=== PATIENT | female | born 1950 | race American Indian/Alaskan Native ===

== ENCOUNTER 2020-10-13 14:17 | Emergency (ER) | payer MEDICARE ==
--- NOTE | 2020-10-13 14:25 | Event Note ---
ED Screening Note Date of service: 10/13/20 Time: 14:24 ED Screening Note: Patient presents from urgent care for right lower quadrant pain times yesterday Denies nausea/vomiting/diarrhea Denies history of abdominal surgeries History of hypertension This initial assessment/diagnostic orders/clinical plan/treatment(s) is/are subject to change based on patients health status, clinical progression and re- assessment by fellow clinical providers in the ED. Further treatment and workup at subsequent clinical providers discretion. Patient/guardian urged not to elope from the ED as their condition may be serious if not clinically assessed and managed. Initial orders include: MAIN Labs CT
[2020-10-13 14:29] VITALS: BP 139/79
[2020-10-13 15:17] LABS: Bacteria,Urine 3+ /HPF (Negative); Bilirubin,Urine NEG (Negative); Blood,Urine SM (Negative); Color,Urine Yellow (Yellow); Mucus,Urine 2+ /HPF; Protein,Urine <15 mg/dL mg/dL (Negative); Urobilinogen,Urine < 2.0 mg/dL (<2.0)
[2020-10-13 16:02] LABS: Alanine Aminotransferase 13 units/L (7-56); Blood Urea Nitrogen 14 mg/dL (7-17); Calcium 9.6 mg/dL (8.4-10.2); Hemolysis Index 33
[2020-10-13 16:04] LABS: Basophils % (Auto) 0.5 % (0.0-1.8); Eosinophils % (Auto) 0.5 % (0.0-4.3); Hematocrit 40.2 % (30.3-42.9); Hemoglobin 13.2 gm/dl (10.1-14.3); Lymphocytes # (Auto) 2.1 K/mm3 (1.2-5.4); Lymphocytes % (Auto) 37.5 % (13.4-35.0); Mean Corpuscular HGB Conc 33 % (30-34); Mean Corpuscular Volume 86 fl (79-97); Monocytes # (Auto) 0.3 K/mm3 (0.0-0.8); Monocytes % (Auto) 5.3 % (0.0-7.3); Platelet Count 231 K/mm3 (140-440); Red Blood Count 4.65 M/mm3 (3.65-5.03); Red Cell Distribution Width 15.3 % (13.2-15.2)
[2020-10-13 16:08] LABS: BUN/Creatinine Ratio 20
[2020-10-13] MEDS ORDERED: fentaNYL 100 MCG/2 ML INJ ONE (22:37)
[2020-10-13] MEDS ORDERED: ONDANSETRON 4 MG/2 ML INJ ONE (22:37)
[2020-10-13] MEDS ORDERED: ONDANSETRON 4 MG/2 ML INJ IV ONE (22:38)
[2020-10-13] MEDS ORDERED: fentaNYL 100 MCG/2 ML INJ IV ONE (22:38)
--- NOTE | 2020-10-13 22:43 | Emergency Department Report ---
HPI - General Chief Complaint: Abdominal Pain Time Seen by Provider: 10/13/20 14:23 - HPI HPI: Room 24 The patient is a 70-year-old female present with a chief complaint of abdominal pain. Patient states she developed right lower quadrant pain yesterday is been constant in nature. Patient denies nausea/vomiting, dysuria or fever. Patient states she still has an appetite. Patient states the pain occasionally radiates to her right flank and down her right leg. Patient currently gives her pain a score of 8/10. Patient went to an urgent care facility initially but was referred to the ED so that she could get a CAT scan of her abdomen and pelvis ED Past Medical Hx - Past Medical History Previous Medical History?: Yes Hx Hypertension: Yes Hx CVA: Yes - Surgical History Past Surgical History?: No - Family History Family history: no significant - Social History Smoking Status: Former Smoker (None x4 years) Substance Use Type: None (Denies illicit drug use) - Medications Home Medications: Home Medications Medication Instructions Recorded Confirmed Last Taken Type Ibuprofen [Motrin 800 MG tab] 800 mg PO Q8HR PRN #20 tablet 10/13/20 Unknown Rx levoFLOXacin [Levaquin TAB] 500 mg PO QDAY #7 tablet 10/13/20 Unknown Rx traMADoL [Ultram] 50 mg PO Q6HR PRN #10 tablet 10/13/20 Unknown Rx ED Review of Systems ROS: Stated complaint: CT SCAN NEEDED Other details as noted in HPI Constitutional: denies: fever Eyes: denies: eye pain ENT: denies: throat pain Respiratory: no symptoms reported Cardiovascular: denies: chest pain Endocrine: no symptoms reported Gastrointestinal: abdominal pain. denies: nausea, vomiting Genitourinary: denies: dysuria Musculoskeletal: back pain Neurological: denies: headache Physical Exam - Physical Exam Vital Signs: Vital Signs 10/13/20 14:25 Temperature 97.8 F Pulse Rate 73 Respiratory 20 Rate Blood Pressure 139/79 O2 Sat by Pulse 100 Oximetry Physical Exam: GENERAL: The patient is well-developed well-nourished female lying on stretcher not appearing to be in acute distress. [] HEENT: Normocephalic. Atraumatic. Extraocular motions are intact. Patient has moist mucous membranes. NECK: Supple. Trachea midline CHEST/LUNGS: Clear to auscultation. There is no respiratory distress noted. HEART/CARDIOVASCULAR: Regular. There is no tachycardia. There is no gallop rub or murmur. ABDOMEN: Abdomen is soft, with discomfort to palpation in the right lower quadrant, suprapubic and left lower quadrant. Pain greatest in the right lower quadrant. There is no rebound or guarding. The remainder of the abdomen is nontender. Patient has normal bowel sounds. There is no abdominal distention. SKIN: There is no rash. There is no edema. There is no diaphoresis. NEURO: The patient is awake, alert, and oriented. The patient is cooperative. The patient has normal speech MUSCULOSKELETAL: There is no evidence of acute injury. ED Course Vital Signs 10/13/20 14:25 Temperature 97.8 F Pulse Rate 73 Respiratory 20 Rate Blood Pressure 139/79 O2 Sat by Pulse 100 Oximetry ED Medical Decision Making - Lab Data Result diagrams: 10/13/20 15:25 10/13/20 15:25 Laboratory Tests 10/13/20 10/13/20 10/13/20 15:25 15:25 Unknown WBC 5.6 RBC 4.65 Hgb 13.2 Hct 40.2 MCV 86 MCH 28 MCHC 33 RDW 15.3 H Plt Count 231 Lymph % (Auto) 37.5 H Fisher % (Auto) 5.3 Eos % (Auto) 0.5 Baso % (Auto) 0.5 Lymph # (Auto) 2.1 Fisher # (Auto) 0.3 Eos # (Auto) 0.0 Baso # (Auto) 0.0 Seg Neutrophils % 56.2 Seg Neutrophils # 3.2 Sodium 136 L Potassium 3.9 Chloride 101.7 Carbon Dioxide 24 Anion Gap 14 BUN 14 Creatinine 0.7 Estimated GFR > 60 BUN/Creatinine Ratio 20 Glucose 86 Calcium 9.6 Total Bilirubin 0.30 AST 15 ALT 13 Alkaline Phosphatase 113 Total Protein 8.1 Albumin 4.0 Albumin/Globulin Ratio 1.0 Lipase 53 Urine Color Yellow Urine Turbidity Cloudy Urine pH 5.0 Ur Specific Mears 1.020 Urine Protein <15 mg/dl Urine Glucose (UA) Neg Urine Ketones Neg Urine Blood Sm Urine Nitrite Neg Urine Bilirubin Neg Urine Urobilinogen < 2.0 Ur Leukocyte Esterase Tr Urine WBC (Auto) 6.0 Urine RBC (Auto) 6.0 U Epithel Cells (Auto) 3.0 Urine Bacteria (Auto) 3+ Urine Mucus 2+ - Radiology Data Radiology results: report reviewed (CT abdomen pelvis), image reviewed (CT abdomen pelvis) [facility] [address] [place] [address] Cat Scan Report Signed Patient: SAYRA DUFF MR#: [id number] : 1950 Acct:[id number] Age/Sex: 70 / F ADM Date: 10/13/20 Loc: ED Attending Dr: Ordering Physician: ERICK OCHOA Date of Service: 10/13/20 Procedure(s): CT abdomen pelvis w con Accession Number(s): [id number] cc: ERICK DON CT ABDOMEN AND PELVIS WITH CONTRAST INDICATION / CLINICAL INFORMATION: acute RLQ pain. TECHNIQUE: Axial CT images were obtained through the abdomen and pelvis after IV contrast. All CT scans at this location are performed using CT dose reduction f or ALARA by means of automated exposure control. COMPARISON: None available. FINDINGS: LOWER CHEST: Calcified granuloma noted in the right lung base. Mild bibasilar atelectasis. LIVER: No significant abnormality. GALLBLADDER: Mild focal area of thickening at the fundus of the gallbladder likely represents adenomyomatosis. BILE DUCTS: No significant abnormality. PANCREAS: No significant abnormality. SPLEEN: Scattered calcite granulomas are noted throughout the splenic parenchyma. ADRENALS: No significant abnormality. RIGHT KIDNEY / URETER: Small simple cyst. No calcified stones or hydronephrosis. LEFT KIDNEY / URETER: No significant abnormality. STOMACH / SMALL BOWEL: Small hiatal hernia. No mechanical obstruction. COLON: No significant abnormality. APPENDIX: No significant abnormality. PERITONEUM: No free fluid. No free air. No fluid collection. LYMPH NODES: No significant adenopathy. AORTA / ARTERIES: Moderate atherosclerotic calcification without acute abnormality. IVC / VEINS: Phleb oliths noted throughout the pelvis. URINARY BLADDER: No significant abnormality. Specifically, no evidence of calcified stone burden. REPRODUCTIVE ORGANS: Globular uterus is noted with a 2.7 cm uterine fibroid. ADDITIONAL FINDINGS: None. SKELETAL SYSTEM: Advanced degenerative changes are noted of the bilateral SI joint with increased osseous sclerosis, predominantly of the iliac. Multilevel degenerative changes are noted of the spine. IMPRESSION: 1. No significant acute abnormality of the abdomen or pelvis. Specifically, no evidence of appendicitis. 2. 2.7 cm uterine fibroid. 3. Focal thickening of the gallbladder wall the fundus likely represents adenomyomatosis. Dedicated nonemergent right upper quadrant ultrasound could be helpful for further characterization if cl inically indicated. 4. Advanced degenerative changes of the bilateral SI joints with osseous sclerosis predominantly involving the iliac. This could represent sacroiliitis. Signer Name: Ted Abel MD Signed: 10/13/2020 10:57 PM Workstation Name: [id number] Transcribed By: Dictated By: TED ABEL Electronically Authenticated By: TED ABEL Signed Date/Time: 10/13/202256 DD/ 43 TD/TT: - Medical Decision Making CT findings discussed with patient and need for follow-up with telecommunications equipment installer verbalized. - Differential Diagnosis Appendicitis, renal colic, pyelonephritis, UTI Critical care attestation.: If time is entered above; I have spent that time in minutes in the direct care of this critically ill patient, excluding procedure time. ED Disposition Clinical Impression: Acute abdominal pain, Bacteriuria Disposition: - TO HOME OR SELFCARE Is pt being admited?: No Does the pt Need Aspirin: No Condition: Stable Instructions: Abdominal Pain (ED), Abdominal Pain, Adult Additional Instructions: Return to the emergency department should you develop worsening symptoms, inability to tolerate food or liquids, high fever or any other concerns Prescriptions: levoFLOXacin [Levaquin TAB] 500 mg PO QDAY #7 tablet Ibuprofen [Motrin 800 MG tab] 800 mg PO Q8HR PRN #20 tablet PRN Reason: Pain, Moderate (4-6) traMADoL [Ultram] 50 mg PO Q6HR PRN #10 tablet PRN Reason: Pain Referrals: CONNIE ESPINOZA MD [Primary Care Provider] - 3-5 Days TRAN ARIAS MD [Staff Physician] - 3-5 Days (Dr. Arias is a telecommunications equipment installer. Please follow-up with him for further evaluation) Time of Disposition: 23:10
--- NOTE | 2020-10-13 22:58 | Cat Scan Report ---
CT ABDOMEN AND PELVIS WITH CONTRAST INDICATION / CLINICAL INFORMATION: acute RLQ pain. TECHNIQUE: Axial CT images were obtained through the abdomen and pelvis after IV contrast. All CT scans at this location are performed using CT dose reduction for ALARA by means of automated exposure control. COMPARISON: None available. FINDINGS: LOWER CHEST: Calcified granuloma noted in the right lung base. Mild bibasilar atelectasis. LIVER: No significant abnormality. GALLBLADDER: Mild focal area of thickening at the fundus of the gallbladder likely represents adenomy omatosis. BILE DUCTS: No significant abnormality. PANCREAS: No significant abnormality. SPLEEN: Scattered calcite granulomas are noted throughout the splenic parenchyma. ADRENALS: No significant abnormality. RIGHT KIDNEY / URETER: Small simple cyst. No calcified stones or hydronephrosis. LEFT KIDNEY / URETER: No significant abnormality. STOMACH / SMALL BOWEL: Small hiatal hernia. No mechanical obstruction. COLON: No significant abnormality. APPENDIX: No significant abnormality. PERITONEUM: No free fluid. No free air. No fluid collection. LYMPH NODES: No significant adenopathy. AORTA / ARTERIES: Moderate atherosclerotic calcification without acute abnormality. IVC / VEINS: Phleboliths noted throughout the pelvis. URINARY BLADDER: No significant abnormality. Specifically, no evidence of calcified stone burden. REPRODUCTIVE ORGANS: Globular uterus is noted with a 2.7 cm uterine fibroid. ADDITIONAL FINDINGS: None. SKELETAL SYSTEM: Advanced degenerative changes are noted of the bilateral SI joint with increased oss eous sclerosis, predominantly of the iliac. Multilevel degenerative changes are noted of the spine. IMPRESSION: 1. No significant acute abnormality of the abdomen or pelvis. Specifically, no evidence of appendicit is. 2. 2.7 cm uterine fibroid. 3. Focal thickening of the gallbladder wall the fundus likely represents adenomyomatosis. Dedicated n onemergent right upper quadrant ultrasound could be helpful for further characterization if clinicall y indicated. 4. Advanced degenerative changes of the bilateral SI joints with osseous sclerosis predominantly invo lving the iliac. This could represent sacroiliitis. Signer Name: Ted Velasquez MD Signed: 10/13/2020 10:57 PM Workstation Name: [id number]
== END 2020-10-13 23:25 | disposition home or self-care (01) ==
LOC: ED 14:17
DX: R82.71 Bacteriuria (principal); R10.32 Left lower quadrant pain; I10 Essential (primary) hypertension; Z86.73 Personal history of transient ischemic attack (TIA), and cerebral infarction without residual deficits; Z87.891 Personal history of nicotine dependence; Z79.899 Other long term (current) drug therapy
CPT/HCPCS: 36415; 74177; 80053; 81001; 83690; 85025; 96374; 96375; 99284; J2405; J3010; Q9967